=== PATIENT | female | born 1950 | race Caucasian/White ===

== ENCOUNTER → 2023-12-19 | Outpatient (CLI) | payer SELFPAY ==
--- NOTE | 2023-12-19 11:42 | MR ---
EXAMINATION TYPE: MR brain wo con DATE OF EXAM: 12/19/2023 COMPARISON: NONE HISTORY: Headaches TECHNIQUE: T1-weighted sagittal, T2, FLAIR, and diffusion axial, and T2 coronal coronal views of the brain are submitted. FINDINGS: There is no evidence of acute ischemia. Mild generalized degenerative change. There is small focal scattered areas of abnormal signal through out the white matter bilaterally which are nonspecific. 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 Mild changes of chronic sinusitis. Orbits are symmetric. There is mild degenerative change of the atlantoaxial joint with a small posterior panus. Craniocervical junction maintained. Sella turcica has a normal appearance. IMPRESSION: 1. No acute intracranial process 2. 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 3. 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
== END | disposition home or self-care (01) ==
LOC: RADMRIMAIN 10:37
PROVIDERS: ATTEND Psychiatry & Neurology Neurology
DX: R41.3 Other amnesia (principal); R90.82 White matter disease, unspecified
CPT/HCPCS: 70551